=== PATIENT | male | born 1980 | race Caucasian/White ===

== ENCOUNTER 2019-07-15 17:08 | Emergency (ER) | payer MEDICAID ==
[~2019-07-15] VITALS: Ht 170.2 cm; Wt 59.4 kg
[2019-07-15 17:29] VITALS: BP 120/71
--- NOTE | 2019-07-15 17:34 | NUR ---
PT AMBULATED TO LOBBY AT THIS TIME, VSS.
--- NOTE | 2019-07-15 17:57 | NUR ---
PT AMBULATED TO CHAIR C AT THIS TIME
--- NOTE | 2019-07-15 18:00 | NUR ---
PT BIB SELF C/O UTI SYMPTOMS 5 DAYS. PT REPORTS SUPRAPUBIC PAIN THAT RADIATES DOWN PENIS, PRESSURE PAIN WITH URINATION AND SHARP PAIN AFTER URINATION. - N/V OR FEVER. PT SEEN AT [facility] FOR SAME SYMPTOMS, WAS DIAGNOSED WITH KIDNEY STONE, WANTS A DIFFERENT OPINION. VSS. ER TO SEE PT. MEDHX:KIDNEY STONE RX:DENIES
[2019-07-15] MEDS ORDERED: cefTRIAXone 250 MG in LIDOCAINE MPF 1% 0.9 ML IM ONE (19:20)
[2019-07-15] MEDS ORDERED: AZITHROMYCIN 250 MG TAB PO ONE (19:20)
[2019-07-15 19:57] VITALS: BP 130/75
--- NOTE | 2019-07-15 19:57 | NUR ---
DPatient discharged with v/s stable. Written and verbal after care instructions given and explained. Patient alert, oriented and verbalized understanding of instructions. Ambulatory with steady gait. All questions addressed prior to discharge. ID band removed. Patient advised to follow up with PMD. Rx of KELFEX, PYRIDIUM given. Patient educated on indication of medication including possible reaction and side effects. Opportunity to ask questions provided and answered.
[2019-07-17 06:11] LABS: CHLAMYDIA TRACHOMATIS AMP DNA Negative (Negative)
== END 2019-07-15 19:57 | disposition home or self-care (01) ==
LOC: MED 17:08
DX: R30.0 Dysuria (principal); Z11.3 Encounter for screening for infections with a predominantly sexual mode of transmission; Z87.442 Personal history of urinary calculi
CPT/HCPCS: 36415; 81002; 87086; 87491; 96372; 99283; J0696; J2001

== ENCOUNTER 2019-07-17 08:26 | Emergency (ER) | payer MEDICAID ==
[~2019-07-17] VITALS: Ht 170.2 cm; Wt 59.9 kg
[2019-07-17 08:35] VITALS: BP 122/67
--- NOTE | 2019-07-17 08:40 | NUR ---
Hafsa calle in [facility] - 07/17/19 at [email or web address] LOUIS AT BEDSIDE
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
--- NOTE | 2019-07-17 08:45 | NUR ---
DR LOUIS AT BEDSIDE
[2019-07-17] MEDS ORDERED: FAMOTIDINE 20 MG TAB PO ONE (08:50)
[2019-07-17] MEDS ORDERED: diphenhydrAMINE 12.5 MG/5 ML UDC PO ONE (08:50)
[2019-07-17] MEDS ORDERED: hydrOXYzine HCL 25 MG TAB PO ONE (08:50)
[2019-07-17] MEDS ORDERED: predniSONE 20 MG TAB PO ONE (08:50)
--- NOTE | 2019-07-17 08:57 | NUR ---
PO BENDRYL, PEPCID, PREDNISONE, AND ATARAX ADMINISTERED. PT TOLERATED WELL
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
--- NOTE | 2019-07-17 09:36 | NUR ---
DR. LOUIS SPEAKING WITH PT AT BEDSIDE.
[2019-07-17 10:15] VITALS: BP 105/71
--- NOTE | 2019-07-17 10:15 | NUR ---
Patient discharged with v/s stable. Written and verbal after care instructions given and explained. Patient alert, oriented and verbalized understanding of instructions. Ambulatory with steady gait. All questions addressed prior to discharge. ID band removed. Patient advised to follow up with PMD. Rx of LEVAQUIN, ATARAX, PREDNISONE given. Patient educated on indication of medication including possible reaction and side effects. Opportunity to ask questions provided and answered.
== END 2019-07-17 10:15 | disposition home or self-care (01) ==
LOC: MED 08:26
DX: L50.9 Urticaria, unspecified (principal); F12.90 Cannabis use, unspecified, uncomplicated
CPT/HCPCS: 99284; J7512; Q0163

== ENCOUNTER 2019-07-26 15:59 | Emergency (ER) | payer MEDICAID ==
[~2019-07-26] VITALS: Ht 167.6 cm; Wt 59.0 kg
[2019-07-26 16:05] VITALS: BP 117/62
--- NOTE | 2019-07-26 16:06 | NUR ---
PT AMBULATED TO BED 6.
[2019-07-26] MEDS ORDERED: KETOROLAC 30 MG/ML VIAL IM ONE (16:15)
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
[2019-07-26 16:25] VITALS: BP 117/62
--- NOTE | 2019-07-26 16:25 | NUR ---
Patient discharged with v/s stable. Written and verbal after care instructions given and explained. Patient alert, oriented and verbalized understanding of instructions. Ambulatory with steady gait. All questions addressed prior to discharge. ID band removed. Patient advised to follow up with PMD. Rx of VOLTAREL TOPICAL GEL, NAPROSYN given. Patient educated on indication of medication including possible reaction and side effects. Opportunity to ask questions provided and answered.
== END 2019-07-26 16:25 | disposition home or self-care (01) ==
LOC: MED 15:59
DX: S16.1XXA Strain of muscle, fascia and tendon at neck level, initial encounter (principal); V49.49XA Driver injured in collision with other motor vehicles in traffic accident, initial encounter; Y93.89 Activity, other specified; Y92.89 Other specified places as the place of occurrence of the external cause; Y99.0 Civilian activity done for income or pay; Z88.1 Allergy status to other antibiotic agents
CPT/HCPCS: 96372; 99283; J1885